=== PATIENT | female | born 1960 | race Caucasian/White ===

== ENCOUNTER 2021-05-13 16:06 | Emergency (ER) | payer BC | END 2021-05-13 19:41 | disposition home or self-care (01) | LOC: ER1 16:06 | DX: Z23 Encounter for immunization (principal); U07.1 COVID-19; E11.9 Type 2 diabetes mellitus without complications; I11.9 Hypertensive heart disease without heart failure; Z88.0 Allergy status to penicillin; Z88.6 Allergy status to analgesic agent | CPT/HCPCS: 96374; 99284; J2405; M0243 ==

== ENCOUNTER → 2022-01-04 | Outpatient (CLI) | payer BC | LOC: HEART 5 07:24 | DX: I25.119 Atherosclerotic heart disease of native coronary artery with unspecified angina pectoris (principal) | CPT/HCPCS: 78452; 93306; A9502; J2785 ==

== ENCOUNTER → 2022-05-04 | Outpatient (CLI) | payer BC, OTHER ==
[2022-05-04 12:55] LABS: HEMOGLOBIN 12.2 gm/dl (12.3-15.3); RED BLOOD COUNT 4.27 M/UL (4.00-5.10)
== END ==
LOC: LAB 11:01
PROVIDERS: Internal Medicine Interventional Cardiology
DX: Z01.818 Encounter for other preprocedural examination (principal); R94.39 Abnormal result of other cardiovascular function study; J30.9 Allergic rhinitis, unspecified; I20.9 Angina pectoris, unspecified; M19.90 Unspecified osteoarthritis, unspecified site; I25.10 Atherosclerotic heart disease of native coronary artery without angina pectoris; I21.9 Acute myocardial infarction, unspecified; E78.00 Pure hypercholesterolemia, unspecified; E11.9 Type 2 diabetes mellitus without complications
CPT/HCPCS: 36415; 80048; 85025; 85610; 85730; 93005

== ENCOUNTER → 2022-05-15 | Outpatient (CLI) | payer BC, OTHER ==
[~2022-05-15] MED LIST: BASAGLAR K100 UNIT/1 SQ; CLOPIDOGREL75 MG PO; CO Q-1010 MG PO; CRESTOR40 MG PO; CYCLOBENZAPRINE5 MG PO; FAMOTIDINE40 MG PO; FENOFIBRATE145 MG PO; GABAPENTIN100 MG PO; GLIPIZIDE10 MG PO; ISOSORBIDE MONO60 MG PO; LISINOPRIL2.5 MG PO; LOPRESSOR 25 MG25 MG PO; NITROGLYCERIN0.4 MG SL; OMEGA-3 ACID ETH1 GM PO; PREDNISONE10 MG PO; PROVENTIL HFA6.7 GM INH; VITAMIN D21250 MCG PO
== END | disposition home or self-care (01) ==
LOC: CATH 08:54
DX: I25.118 Atherosclerotic heart disease of native coronary artery with other forms of angina pectoris (principal); E11.9 Type 2 diabetes mellitus without complications; I10 Essential (primary) hypertension; E78.5 Hyperlipidemia, unspecified; Z79.02 Long term (current) use of antithrombotics/antiplatelets; Z79.4 Long term (current) use of insulin; Z79.899 Other long term (current) drug therapy
CPT/HCPCS: 99152; 99153; C1769; J1644; J2250; J3010; Q9965; Q9967